=== PATIENT | female | born 1995 | race Caucasian/White ===

== ENCOUNTER 2023-01-06 21:10 | Emergency (ER) | payer OTHER ==
[2023-01-06 21:20] VITALS: BP 125/70; PULSE 76; RESP 16; TEMP 99.2; BMI 28.3
[2023-01-06 21:48] LABS: EPITHELIAL CELLS FEW /hpf
[2023-01-06] MEDS ORDERED: ACETAMINOPHEN 1000 MG/100 ML BAG IVPB ONE (21:54)
[2023-01-06] MEDS ORDERED: SODIUM CHLORIDE 1,000 ML IV STA (21:54)
[2023-01-06] MEDS ORDERED: PANTOPRAZOLE SODIUM 40 MG VIAL IVPB ONE (22:14)
[2023-01-06 22:35] LABS: HEMATOCRIT 41.5 % (32.4-45.2); HEMOGLOBIN 14.1 G/dL (10.7-15.3); MCH 30.1 pg (25.7-33.7); MCHC 34.1 g/dl (32.0-36.0); MEAN CELL VOLUME 88.3 fl (80-96); MEAN PLT VOLUME 9.4 fl (7.5-11.1); PLATELET COUNT 260.4 10^3/uL (134-434); RDW 14.1 % (11.6-15.6); WHITE BLOOD COUNT 10.7 10^3/uL (4.0-10.8)
[2023-01-06] MEDS ORDERED: PANTOPRAZOLE SODIUM 40 MG VIAL ONE (22:36)
[2023-01-06] MEDS ORDERED: ACETAMINOPHEN INJECTION 100 ML IVPB ONE (22:36)
[2023-01-06 22:48] LABS: ALBUMIN 4.5 g/dl (3.4-5.0); BLOOD UREA NITROGEN 8.2 mg/dl (7-18); CALCIUM 9.1 mg/dl (8.5-10.1); CREATININE 0.6 mg/dl (0.6-1.3); POTASSIUM 3.8 mmol/L (3.5-5.1); SGOT/AST 9.9 U/L (15-37); SGPT/ALT 11.4 U/L (7-52); TOT PROT 7.3 g/dl (6.4-8.2)
[2023-01-06 23:04] LABS: PLATELET ESTIMATE ADEQUATE
[2023-01-06 23:17] LABS: BILIRUBIN,TOTAL 0.5 mg/dL (0.2-1)
== END 2023-01-07 03:41 | disposition home or self-care (01) ==
LOC: FER 21:10
PROC: 3E033NZ Introduction of Analgesics, Hypnotics, Sedatives into Peripheral Vein, Percutaneous Approach (ICD-10-PCS; principal; 2023-01-06)
PROC: 3E033GC Introduction of Other Therapeutic Substance into Peripheral Vein, Percutaneous Approach (ICD-10-PCS; 2023-01-06)
PROC: 3E0337Z Introduction of Electrolytic and Water Balance Substance into Peripheral Vein, Percutaneous Approach (ICD-10-PCS; 2023-01-06)
DX: R10.13 Epigastric pain (principal); R11.2 Nausea with vomiting, unspecified; R19.7 Diarrhea, unspecified; R10.33 Periumbilical pain; K29.00 Acute gastritis without bleeding
CPT/HCPCS: 36415; 74177-TC; 80053; 81003; 81015; 83690; 84703; 85027; 87086; 99285-25; Q9967